=== PATIENT | female | born 1960 | race Caucasian/White ===

== ENCOUNTER 2018-03-22 08:02 | Day surgery (SDC) | payer OTHER ==
[~2018-03-22] VITALS: Ht 167.6 cm; Wt 55.3 kg
[~2018-03-22 08:02] MED LIST: ESTR2; NAPR500; PROGESTERONE200 MG; RITALIN
== END 2018-03-22 11:30 | disposition home or self-care (01) ==
LOC: ORSCSDS 08:02
PROVIDERS: Student in an Organized Health Care Education/Training Program
PROC: 0DJD8ZZ Inspection of Lower Intestinal Tract, Via Natural or Artificial Opening Endoscopic (ICD-10-PCS; principal; 2018-03-22 09:30)
DX: Z12.11 Encounter for screening for malignant neoplasm of colon (principal); K57.30 Diverticulosis of large intestine without perforation or abscess without bleeding; Z87.891 Personal history of nicotine dependence
CPT/HCPCS: J7120

== ENCOUNTER → 2020-04-09 | Outpatient (CLI) | payer BC | LOC: PLD 15:48 → LAB SHORT 15:48 | DX: D48.5 Neoplasm of uncertain behavior of skin (principal); L73.9 Follicular disorder, unspecified; D23.9 Other benign neoplasm of skin, unspecified | CPT/HCPCS: 88305; 88312 ==

== ENCOUNTER 2021-09-15 09:12 | Emergency (ER) | payer BC ==
[~2021-09-15] VITALS: Ht 167.6 cm; Wt 63.5 kg
[2021-09-15] MEDS ORDERED: BUPROPION XL150 M1 PO (09:26)
[2021-09-15 09:47] LABS: BASOPHILS ABSOLUTE AUTO 0.08 K/mm3 (0.00-0.23); BASOPHILS PERCENT AUTO 2 % (0-2); EOSINOPHILS ABSOLUTE AUTO 0.01 K/mm3 (0.00-0.68); EOSINOPHILS PERCENT AUTO 0 % (0-6); Hematocrit 38.8 % (33.0-51.0); Hemoglobin 12.4 g/dL (11.5-16.0); IMMATURE GRAN ABSOLUTE AUTO 0.01 K/mm3 (0.00-0.10); IMMATURE GRAN PERCENT AUTO 0 % (0-1); LYMPHOCYTES ABSOLUTE AUTO 0.88 K/mm3 (0.84-5.20); LYMPHOCYTES PERCENT AUTO 18 % (21-46); MONOCYTES ABSOLUTE AUTO 0.21 K/mm3 (0.16-1.47); MONOCYTES PERCENT AUTO 4 % (4-13); Mean Corpuscular HGB 29.3 pg (26.0-34.0); Mean Corpuscular Volume 92 fL (80-100); Mean Platelet Volume 11.9 fL (9.1-12.4); NEUTROPHILS ABSOLUTE AUTO 3.67 K/mm3 (1.96-9.15); NEUTROPHILS PERCENT AUTO 76 % (41-73); Platelet Count 201 K/mm3 (150-400); RDW Coefficient Variation 13.2 % (11.7-14.2); Red Blood Cell Count 4.23 M/mm3 (3.80-5.20); White Blood Cell Count 4.86 K/mm3 (4.00-11.30)
[2021-09-15 10:05] LABS: Albumin, Blood 3.8 g/dL (3.4-5.0); Albumin/Globulin Ratio 1.5 (0.8-1.8); Bilirubin, Total 0.9 mg/dL (0.1-1.0); Bun/Creatinine Ratio 24.2 (12.0-20.0); Calcium, Blood 8.5 mg/dL (8.5-10.1); Creatinine, Blood 0.66 mg/dL (0.40-1.00); Globulin, Blood 2.5 g/dL (2.2-4.0); Potassium, Blood 3.8 mmol/L (3.5-5.5); Total Protein, Blood 6.3 g/dL (6.4-8.2)
== END 2021-09-15 11:42 | disposition short-term general hospital (02) ==
LOC: ER 09:12
PROVIDERS: Emergency Medicine
DX: S06.6X0A Traumatic subarachnoid hemorrhage without loss of consciousness, initial encounter (principal); S30.1XXA Contusion of abdominal wall, initial encounter; V80.010A Animal-rider injured by fall from or being thrown from horse in noncollision accident, initial encounter; Z79.899 Other long term (current) drug therapy
CPT/HCPCS: 36415; 70450; 71260; 72125; 74177; 80053; 85025; J1953; J2060; J2270; J2405; J7030; Q9967

== ENCOUNTER 2023-11-21 16:41 | Emergency (ER) | payer OTHER, BC ==
[~2023-11-21] VITALS: Ht 170.2 cm; Wt 61.2 kg
[~2023-11-21 16:41] MED LIST changes: +BUPROPION XL150 M1 PO
[2023-11-21] MEDS ORDERED: TraMADol HCl 50 MG Tab PO ONE (18:05)
[2023-11-21] MEDS ORDERED: Cephalexin Monohydrate 500 MG Cap PO ONE (18:05)
[2023-11-21] MEDS ORDERED: CEPH500 PO (18:12)
[2023-11-21] MEDS ORDERED: Ultram50 MG PO (18:12)
[2023-11-21 18:26] VITALS: BP 138/84
== END 2023-11-21 18:30 | disposition home or self-care (01) ==
LOC: ER 16:41
DX: S01.511A Laceration without foreign body of lip, initial encounter (principal); V80.010A Animal-rider injured by fall from or being thrown from horse in noncollision accident, initial encounter; Y93.52 Activity, horseback riding; Z87.891 Personal history of nicotine dependence; Z79.899 Other long term (current) drug therapy
CPT/HCPCS: 12013; 99283-25; A9270